=== PATIENT | female | born 1990 | race Caucasian/White ===

== ENCOUNTER → 2024-06-29 09:05 | Outpatient (REF) | payer BC, SELFPAY ==
--- NOTE | 2024-07-06 09:18 | PN.DIAED06 ---
Meal Plan - Gestational
- Breakfast
Gestational Diabetes Meal Plan Name: 1800 calories
Breakfast - Total Carbohydrate (grams): 30
Breakfast - Starch Carbohydrate: 1
Breakfast - Fruit Carbohydrate: 0
Breakfast - Milk Carbohydrate: 1
Breakfast - Nonstarchy Vegetables: Yes
Breakfast - Meat/Protein: 1
Breakfast - Fat: 2
- Morning Snack
Morning Snack - Total Carbohydrate (grams): 30
Morning Snack - Starch Carbohydrate: 1
Morning Snack - Fruit Carbohydrate: 0
Morning Snack - Milk Carbohydrate: 1
Morning Snack - Nonstarchy Vegetables: Yes
Morning Snack - Meat/Protein: 0.5
Morning Snack - Fat: 0
- Lunch
Lunch - Total Carbohydrate (grams): 45
Lunch - Starch Carbohydrate: 2
Lunch - Fruit Carbohydrate: 1
Lunch - Milk Carbohydrate: 0
Lunch - Nonstarchy Vegetables: Yes
Lunch - Meat/Protein: 2
Lunch - Fat: 1
- Afternoon Snack
Afternoon Snack - Total Carbohydrate (grams): 30
Afternoon Snack - Starch Carbohydrate: 1
Afternoon Snack - Fruit Carbohydrate: 1
Afternoon Snack - Milk Carbohydrate: 0
Afternoon Snack - Nonstarchy Vegetables: Yes
Afternoon Snack - Meat/Protein: 1
Afternoon Snack - Fat: 0
- Dinner
Dinner - Total Carbohydrate (grams): 45
Dinner - Starch Carbohydrate: 2
Dinner - Fruit Carbohydrate: 0
Dinner - Milk Carbohydrate: 1
Dinner - Nonstarchy Vegetables: Yes
Dinner - Meat/Protein: 2
Dinner - Fat: 2
- Evening Snack
Evening Snack - Total Carbohydrate (grams): 30
Evening Snack - Starch Carbohydrate: 1
Evening Snack - Fruit Carbohydrate: 0
Evening Snack - Milk Carbohydrate: 1
Evening Snack - Nonstarchy Vegetables: Yes
Evening Snack - Meat/Protein: 1
Evening Snack - Fat: 1
--- NOTE | 2024-07-06 09:21 | PN.DE ---
Diabetes Education
- -
Delmi presented with her mother for medical nutrition therapy. This is her first and she is 24 weeks gestation. I reviewed glucose metabolism and what occurs during to cause increased blood glucose levels. Discussed
importance of keeping blood glucose levels in target range to avoid complications to the baby during and after . I provided written material outlining fasting and 2 hour post glucose goals.
Delmi was checking her blood sugar at home with a true metrix meter her father had purchased for himself. I gave her a Onet[employer] Verio meter based on her insurance plan and reviewed the monitor set up. She stated she was comfortable checking
fingersticks on her own. She is aware of monitoring her blood glucose fasting and 2 hours post meals. She will also send reports as directed to Anjana at [facility].
I provided an 1800 calorie gestational meal plan. Delmi has seen a daylight driller in the past as she is positive for celiac disease and has good knowledge of healthy nutrition. We discussed the importance of physical activity in helping to decrease
blood glucose levels. Delmi was encouraged to rout out to the office if she had any further concerns or should she require insulin later at a later time.
== END ==
LOC: DES 09:05
PROVIDERS: ATTENDING PHYSICIAN Obstetrics & Gynecology
DX: O24.419 Gestational diabetes mellitus in pregnancy, unspecified control (principal)
CPT/HCPCS: 99078

== ENCOUNTER → 2024-07-09 11:22 | Outpatient (REF) | payer BC, SELFPAY | LOC: PNTC 11:22 | PROVIDERS: ATTENDING PHYSICIAN Obstetrics & Gynecology | DX: O24.419 Gestational diabetes mellitus in pregnancy, unspecified control (principal); O99.619 Diseases of the digestive system complicating pregnancy, unspecified trimester | CPT/HCPCS: 76816 ==

== ENCOUNTER → 2024-08-04 07:56 | Outpatient (REF) | payer BC, SELFPAY | LOC: PNTC 07:56 | PROVIDERS: ATTENDING PHYSICIAN Obstetrics & Gynecology | DX: O24.414 Gestational diabetes mellitus in pregnancy, insulin controlled (principal) | CPT/HCPCS: 59025; 76815 ==

== ENCOUNTER → 2024-08-10 09:47 | Outpatient (REF) | payer BC, SELFPAY | LOC: PNTC 09:47 | PROVIDERS: ATTENDING PHYSICIAN Obstetrics & Gynecology | DX: O09.519 Supervision of elderly primigravida, unspecified trimester (principal) | CPT/HCPCS: 59025; 76816 ==

== ENCOUNTER → 2024-08-17 08:56 | Outpatient (REF) | payer BC, SELFPAY | LOC: PNTC 08:56 | PROVIDERS: ATTENDING PHYSICIAN Obstetrics & Gynecology | DX: O24.414 Gestational diabetes mellitus in pregnancy, insulin controlled (principal) | CPT/HCPCS: 59025; 76815 ==

== ENCOUNTER → 2024-08-24 08:20 | Outpatient (REF) | payer BC, SELFPAY | LOC: PNTC 08:20 | PROVIDERS: ATTENDING PHYSICIAN Obstetrics & Gynecology | DX: O24.414 Gestational diabetes mellitus in pregnancy, insulin controlled (principal) | CPT/HCPCS: 59025; 76815 ==

== ENCOUNTER → 2024-08-31 10:27 | Outpatient (REF) | payer BC, SELFPAY | LOC: PNTC 10:27 | PROVIDERS: ATTENDING PHYSICIAN Obstetrics & Gynecology | DX: O24.419 Gestational diabetes mellitus in pregnancy, unspecified control (principal) | CPT/HCPCS: 36415; 59025; 76815 ==

== ENCOUNTER → 2024-09-07 09:28 | Outpatient (REF) | payer BC, SELFPAY | LOC: PNTC 09:28 | PROVIDERS: ATTENDING PHYSICIAN Obstetrics & Gynecology | DX: O24.414 Gestational diabetes mellitus in pregnancy, insulin controlled (principal) | CPT/HCPCS: 59025; 76816 ==

== ENCOUNTER → 2024-09-14 10:01 | Outpatient (REF) | payer BC, SELFPAY | LOC: PNTC 10:01 | PROVIDERS: ATTENDING PHYSICIAN Obstetrics & Gynecology | DX: O24.414 Gestational diabetes mellitus in pregnancy, insulin controlled (principal) | CPT/HCPCS: 59025; 76815 ==

== ENCOUNTER 2024-09-16 19:27 | Inpatient (IN) | payer BC, SELFPAY ==
[2024-09-16 19:28] VITALS: BMI 33.6
[2024-09-16 19:58] LABS: Glucose - Point of Care 124 mg/dl (70-99)
[2024-09-16 20:15] LABS: % Basophils 0.4 % (0-2); % Eosinophils 0.6 % (0-6); % Immature Granulocytes 0.9 % (0-0.5); % Lymphocytes 16.1 % (20.5-51.1); % Monocytes 6.6 % (1.7-9.3); % Neutrophils 75.4 % (42.2-75.2); Absolute Eosinophils 0.1 10^3/uL (0-0.7); Absolute Immature Granulocytes 0.1 10^3/uL (0-0.05); Absolute Lymphocytes 1.4 10^3/uL (1.2-3.4); Absolute Monocytes 0.6 10^3/uL (0.1-0.6); Absolute Neutrophils 6.4 10^3/uL (1.4-6.5); Hematocrit 36.5 % (37.0-47.0); Hemoglobin 12.5 g/dL (12.0-16.0); Mean Corp Hgb Conc. 34.2 g/dL (33.0-37.0); Mean Corpuscular Hgb 30.9 pg (27.0-31.0); Mean Corpuscular Volume 90.3 fL (81.0-99.0); Mean Platelet Volume 10.8 fL (7.4-10.4); Nucleated Red Blood Cells % 0 %; Platelet Count 158 10^3/uL (130-400); Red Blood Cell Count 4.04 10^6/uL (4.20-5.40); Red Cell Dist. Width 13.8 % (11.5-14.5); White Blood Cell Count 8.5 10^3/uL (4.8-10.8)
[2024-09-16 20:25] LABS: ALT (SGPT) 15 U/L (0-35); AST (SGOT) 22 U/L (14-36); Albumin 3.8 g/dl (3.5-5.0); Alkaline Phosphatase 431 U/L (38-126); Blood Urea Nitrogen 6 mg/dl (7-17); Calcium 9.5 mg/dl (8.4-10.2); Carbon Dioxide 20 mmol/L (22-30); Chloride 103 mmol/L (98-107); Estimated Creatinine Clearance > 125 ml/min; Glucose 124 mg/dl (70-99); Potassium 3.5 mmol/L (3.5-5.1); Sodium 133 mmol/L (135-145); Total Bilirubin 0.6 mg/dl (0.2-1.3); Total Protein 6.5 g/dl (6.3-8.2); eGFR > 60.00
[2024-09-16 20:26] VITALS: BP 140/80
[2024-09-16] MEDS: NOVOLOG vial 0.02 UNITS SC (20:36)
[2024-09-16] MEDS: CYTOTEC 25 MICROGRAM VAG (20:38)
[2024-09-16 20:42] LABS: Protein/creatinine Ratio 0.4; Urine Protein 11 mg/dl
[2024-09-16 23:52] LABS: Glucose - Point of Care 88 mg/dl (70-99)
[2024-09-16] MEDS: LR 1000 IV (23:52)
[2024-09-17] MEDS: CYTOTEC 50 MICROGRAM PO (00:52)
[2024-09-17] MEDS: LR 1000 IV ×3 (03:41→21:00)
[2024-09-17 03:52] LABS: Glucose - Point of Care 78 mg/dl (70-99)
[2024-09-17] MEDS: CYTOTEC PO ×5 (04:41→21:04)
[2024-09-17] MEDS: SYNTHROID 75 MCG PO (06:05)
[2024-09-17] MEDS: PRENATAL PLUS 1 TABLET PO (08:41)
[2024-09-17] MEDS: PITOCIN 30 UNITS/NSS 500 ML IV (09:57)
[2024-09-17 10:04] LABS: Glucose - Point of Care 82 mg/dl (70-99)
[2024-09-17 16:03] LABS: Glucose - Point of Care 113 mg/dl (70-99)
[2024-09-17 22:02] LABS: Glucose - Point of Care 81 mg/dl (70-99)
[2024-09-17] MEDS: HUMULIN N KWIKPEN 6 UNITS SC (22:02)
[2024-09-18 02:02] LABS: Glucose - Point of Care 84 mg/dl (70-99)
[2024-09-18] MEDS: LR 1000 IV (05:00)
[2024-09-18] MEDS: SYNTHROID 75 MCG PO (05:51)
[2024-09-18 06:32] LABS: Glucose - Point of Care 80 mg/dl (70-99)
[2024-09-18 10:07] LABS: Glucose - Point of Care 78 mg/dl (70-99)
[2024-09-18] MEDS: PRENATAL PLUS PO (11:30)
[2024-09-18] MEDS: TYLENOL 1000 MG PO (11:43)
[2024-09-18] MEDS: BICITRA 30 ML PO (12:02)
[2024-09-18] MEDS: ANCEF 10 IV (12:02)
[2024-09-18] MEDS: TORADOL 15 MG IV ×2 (13:35→20:03)
[2024-09-18] MEDS: PITOCIN 30 UNITS/NSS 500 ML IV (17:47)
[2024-09-18] MEDS: TYLENOL 650 MG PO (20:05)
[2024-09-19] MEDS: TORADOL 15 MG IV ×2 (02:01→07:51)
[2024-09-19 04:58] LABS: Hematocrit 30.5 % (37.0-47.0); Hemoglobin 10.9 g/dL (12.0-16.0); Mean Corp Hgb Conc. 35.7 g/dL (33.0-37.0); Mean Corpuscular Hgb 31.9 pg (27.0-31.0); Mean Corpuscular Volume 89.2 fL (81.0-99.0); Mean Platelet Volume 11.5 fL (7.4-10.4); Platelet Count 153 10^3/uL (130-400); Red Blood Cell Count 3.42 10^6/uL (4.20-5.40); Red Cell Dist. Width 13.7 % (11.5-14.5); White Blood Cell Count 10.1 10^3/uL (4.8-10.8)
[2024-09-19] MEDS: SYNTHROID 75 MCG PO (06:16)
[2024-09-19] MEDS: TYLENOL 650 MG PO ×3 (06:24→20:30)
--- NOTE | 2024-09-19 07:46 | W.PN.ANS.POP ---
Anesthesia Post Operative
- Anesthesia Post Op Note
Vital Signs Stable-See Nursing Note: Yes
Airway Patent: Yes
Adequate Pain Control: Yes
Change in Mental Status: No
Current Postoperative Nausea & Vomiting: No
Anesthesia Complications: No
General Anesthetic Recall: No (n/a)
Unplanned Admission: No
Post Op Hydration Adequate: Yes
[2024-09-19] MEDS: PRENATAL PLUS 1 TABLET PO (07:49)
[2024-09-19] MEDS: SENOKOT-S 1 TABLET PO (07:49)
[2024-09-19] MEDS: MOTRIN 600 MG PO ×2 (13:58→20:31)
[2024-09-20] MEDS: MOTRIN 600 MG PO ×4 (03:58→23:50)
[2024-09-20] MEDS: TYLENOL 650 MG PO ×4 (03:59→23:50)
[2024-09-20] MEDS: SYNTHROID 75 MCG PO (06:09)
[2024-09-20] MEDS: SENOKOT-S 1 TABLET PO (08:36)
[2024-09-20] MEDS: MYLICON 80 MG PO (08:36)
[2024-09-20] MEDS: PRENATAL PLUS 1 TABLET PO (08:36)
[2024-09-21] MEDS: MYLICON 80 MG PO (03:38)
[2024-09-21] MEDS: SYNTHROID 75 MCG PO (05:42)
[2024-09-21] MEDS: MOTRIN 600 MG PO (08:04)
[2024-09-21] MEDS: TYLENOL 650 MG PO (08:04)
[2024-09-21] MEDS: PRENATAL PLUS 1 TABLET PO (08:05)
--- NOTE | 2024-09-21 11:43 | W.DS.TRANS ---
DC Summary - [employer]
-
Discharge Instructions:
Discharge Diagnosis/Procedures 39.2wks, gestational diabetes insulin
Class A2, Failed Induction, Primary LTCS, mild
anemia, hypothyroidism
Diet Regular
Activity No strenuous activity
Driving Restrictions No driving for 2 weeks
Bathing Restrictions OK to Shower
Instructions:
Stand-Alone Forms: LDRP Delivery
Changes to Home Medications: Yes
Discharge Medications:
DC Medications w/original date entered in [facility]
1 tab PO DAILY 09/16/24
Synthroid 75 mcg PO DAILY 09/16/24
acetaminophen 325 mg tablet 650 mg (2 x 325 mg) PO Q4HPRN PRN mild pain #0 tabs 09/21/24
ibuprofen 600 mg tablet 600 mg PO Q6HPRN PRN cramps #0 tabs 09/21/24
Home Medication Changes
Discontinue insulin
Pending Results: Yes
Additional Pending Results:
placental pathology
Total time spent discharging patient (in min): 30
[2024-09-22 10:50] LABS: Syphilis/T. pallidum Ab Reflex Negative (Negative)
== END 2024-09-21 13:20 | disposition home or self-care (01) | DRG 788 ==
LOC: LDRP 19:27
PROVIDERS: Obstetrics & Gynecology; ADMITTING PHYSICIAN Student in an Organized Health Care Education/Training Program; REFERRING PHYSICIAN Obstetrics & Gynecology
PROC: 3E0P7VZ Introduction of Hormone into Female Reproductive, Via Natural or Artificial Opening (ICD-10-PCS; 2024-09-16)
PROC: 3E033VJ Introduction of Other Hormone into Peripheral Vein, Percutaneous Approach (ICD-10-PCS; 2024-09-16)
PROC: 4A1HXCZ Monitoring of Products of Conception, Cardiac Rate, External Approach (ICD-10-PCS; 2024-09-17)
PROC: 10D00Z1 Extraction of Products of Conception, Low, Open Approach (ICD-10-PCS; 2024-09-18)
PROC: 10907ZC Drainage of Amniotic Fluid, Therapeutic from Products of Conception, Via Natural or Artificial Opening (ICD-10-PCS; 2024-09-18)
DX: O24.424 Gestational diabetes mellitus in childbirth, insulin controlled (principal); O99.62 Diseases of the digestive system complicating childbirth; K90.0 Celiac disease; O99.284 Endocrine, nutritional and metabolic diseases complicating childbirth; E03.9 Hypothyroidism, unspecified; O61.8 Other failed induction of labor; O90.81 Anemia of the puerperium; Z37.0 Single live birth; Z3A.39 39 weeks gestation of pregnancy; Z79.890 Hormone replacement therapy
CPT/HCPCS: 88307; 80053; 82570; 82962; 84156; 85025; 85027; 86780; 86850; 86900; 86901